=== PATIENT | male | born 1965 | race Caucasian/White ===

== ENCOUNTER 2018-04-30 06:38 | Day surgery (SDC) | payer OTHER, SELFPAY ==
[2018-04-23 12:50] VITALS: BMI 27.8
[2018-04-30] VITALS (8 sets, daily range): BP systolic 123–151; BP diastolic 82–103; PULSE 65–83; RESP 10–16; TEMP 35.9–36.2; O2SAT 93–97; BMI 27.3
[2018-04-30] MEDS: LACTATED RINGERS 1,000 ML 42 ML IV (07:38)
--- NOTE | 2018-04-30 07:44 | PM.PREOP ---
Pre-operative Note Interval Note Pre-op Check: History & Physical Reviewed by Physician
--- NOTE | 2018-04-30 07:45 | PM.OP.1 ---
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 After induction of general anesthesia the tourniquet was placed about the left ankle and foot was prepped and draped in the usual aseptic manner. The tourniquet was deflated and after check of anesthesia incision was made over the dorsal aspect of the 1st metatarsophalangeal joint. The incision was deepened through subcutaneous tissues being careful to identify and retract all vital neural and vascular structures. All bleeders were cauterized and ligated as necessary. Significant amount of degenerative changes with spurring was noted to the 1st metatarsophalangeal joint. There was at least 50% loss of the cartilage of the 1st metatarsal head and a little bit of loss to the base of the proximal phalanx. Spurring was reduced using a rongeur and saw and the dorsal lateral spur and dorsal medial eminence was also reduced. The area was smoothed with a manual rasp. A McGlamry scoop was used to reduce some plantar adhesions. The area was irrigated with copious amounts of normal sterile saline and put through range of motion there appeared to be a little bit more motion than prior to the surgery and was also more smooth. The tourniquet was deflated, prompt hyperemic response was seen to the foot. Deep closure was performed using 3 0 Vicryl subcutaneous with 4 O Vicryl, and skin with 3 0 nylon. He was placed in a sterile lightly compressive dressing consisting of Adaptic 4x4s conform Coban and Amando wrap stockinette and a postsurgical shoe. He was transferred to PACU vital signs stable. Pt. Postop monitoring the patient be discharged home on written and oral postop instructions including to keep the dressing dry and intact, avoiding significant ambulation to the foot, icing and elevating the foot when seated at home. DVT prevention techniques have been reviewed. His 1st postoperative visit will be a dressing change and likely closer to the 2nd to 3rd week we will be looking at suture removal. Complications: none Condition: stable Disposition: PACU Plan for aftercare: D/C to home when stable.
[2018-04-30] MEDS: CEFAZOLIN VIAL 2 GM in SODIUM CHLORIDE 0.9% 100 ML 200 ML IV (07:48)
[2018-04-30] MEDS: BUPIVACAINE 0.5% (PF) 30 ML VIAL 15 ML INJ (08:54)
[2018-04-30] MEDS: OXYCODONE/ACETAMINOPHEN 5/325 TABLET 1 TAB PO (09:34)
== END 2018-04-30 10:08 | disposition home or self-care (01) ==
PROVIDERS: Visit Provider Podiatrist
PROC: (CPT 28289; principal; 2018-04-30 07:45)
DX: M19.072 Primary osteoarthritis, left ankle and foot (principal); M12.9 Arthropathy, unspecified; M79.671 Pain in right foot; S90.121A Contusion of right lesser toe(s) without damage to nail, initial encounter; G47.33 Obstructive sleep apnea (adult) (pediatric)
CPT/HCPCS: 28289; J0690; J2405; J2704

== ENCOUNTER → 2023-09-28 15:05 | Outpatient (CLI) | payer OTHER, SELFPAY ==
[2023-09-28 15:52] LABS: Albumin 4.4 g/dL (3.5-5.0); Blood Urea Nitrogen 18 mg/dL (9-20); Calcium 9.5 mg/dL (8.4-10.2); Carbon Dioxide 26 mmol/L (22-32); Chloride 104 mmol/L (98-107); Estimated Glomerular Filt Rate > 60 mL/min (>60); Glucose 98 mg/dL (70-100); HEMOLYSIS < 15 (0-50); Phosphorous 4.5 mg/dL (2.5-4.5); Potassium 4.2 mmol/L (3.4-5.1); Sodium 139 mmol/L (137-145)
== END ==
PROVIDERS: Referring Provider Orthopaedic Surgery; Visit Provider Orthopaedic Surgery
DX: M25.531 Pain in right wrist (principal)
CPT/HCPCS: 36415; 80069

== ENCOUNTER → 2023-11-05 11:18 | Outpatient (CLI) | payer OTHER, SELFPAY ==
--- NOTE | 2023-11-05 | DI.MRI.S_ITS ---
PROCEDURE: MR WRIST RT W CON INDICATIONS: Other articular cartilage disorders, right wrist TECHNIQUE: After the administration of 3-4 mL of dilute intra-articular Gadolinium contrast into the radiocarpal compartment, coronal T1 spin echo with fat saturation and T2 fast spin echo with fat saturation, axial T1 spin echo and T2 fast spin echo with fat saturation, sagittal T1 spin echo with and without fat saturation through the wrist. COMPARISON: None. FINDINGS: Image quality: Excellent. Bones and cartilage: The carpal bones are normally aligned. No bone marrow contusions or fractures. No evidence for avascular necrosis. Mild wrist joint osteoarthritic changes are seen with joint space narrowing and subchondral sclerosis. Nonspecific intraosseous cystic changes are noted involving distal portion of hamate. No suspicious bony lesions. Carpal ligaments: The scapholunate and lunotriquetral ligaments appear intact, without gadolinium extravasation into the mid-carpal compartment. The radioscaphocapitate and radiolunotriquetral ligaments appear intact. The arcuate ligament and short radiolunate ligament also appear normal. The dorsal intercarpal and radiotriquetral ligaments appear intact. On sagittal images, the pisohamate ligament appears intact. Triangular fibrocartilage complex: There is signal abnormality and fraying of mid to lateral portion of triangular fibrocartilage near its radial insertion with gadolinium extravasation into the distal radioulnar joint. The adjacent meniscal homolog appears normal. The ulnar collateral ligament appears intact. The extensor carpi ulnaris tendon is thickened at the level of ulnar styloid. Tendons and soft tissues: The carpal tunnel structures appear normal, including the median nerve. The ulnar nerve appears normal within Guyon's canal. All six extensor tendon compartments demonstrate normal morphology, without pathologic tendon sheath fluid. No soft tissue ganglion cysts. IMPRESSION: 1. Mild right wrist joint osteoarthritis. No wrist fracture or dislocation. No evidence of avascular necrosis. Nonspecific intraosseous cyst formation in distal portion of hamate. 2. Scapholunate and lunotriquetral ligaments are intact. 3. Suggestion of full-thickness perforation involving central and lateral portion of triangular fibrocartilage with contrast extravasation into the distal radial ulnar joint space. 4. Tendinosis involving extensor carpi ulnaris tendon at the level of ulnar styloid. Rest of the wrist tendons are intact. Dictated by: Emmanuel Ingram M.D. on 11/05/2023 at 16:17 Approved by: Emmanuel Ingram M.D. on 11/05/2023 at 16:20
--- NOTE | 2023-11-05 | DI.RAD.S_ITS ---
PROCEDURE: FL WRIST INJECTION MR/CT RT INDICATIONS: Other articular cartilage disorders, right wrist COMPARISON: [facility], MR, MR WRIST RT W CON, 11/05/2023, 11:58. TECHNIQUE: After informed consent had been obtained, the wrist was examined fluoroscopically, and a site chosen for injection of the radiocarpal compartment from a dorsal approach. Skin was prepped and draped in a sterile fashion and 1% lidocaine infiltrated from the skin down to the articular surface. A hypodermic needle was then introduced into the articular space and a modest amount of contrast medium was instilled confirming intra-articular needle tip placement. This was followed by approximately 4 mL of a dilute gadolinium solution. Needle was removed and dressing was applied. The patient experienced no complications throughout the procedure and left the fluoroscopic suite in no apparent distress. FINDINGS: A single fluoroscopic spot image demonstrates intra-articular location to injected iodinated contrast. IMPRESSION: Successful fluoroscopic-guided administration of dilute Gadolinium solution for wrist MR arthrogram. Dictated by: Ubaldo Marin M.D. on 11/05/2023 at 14:15 Approved by: Ubaldo Marin M.D. on 11/05/2023 at 14:15
[2023-11-05] MEDS: LIDOCAINE 1% 20 ML INJ (12:39)
[2023-11-05] MEDS: SODIUM CHLORIDE 0.9 % 20 ML VIAL IV (12:40)
== END ==
PROVIDERS: Referring Provider Orthopaedic Surgery; Visit Provider Orthopaedic Surgery
DX: Z01.818 Encounter for other preprocedural examination (principal); M24.131 Other articular cartilage disorders, right wrist; M19.031 Primary osteoarthritis, right wrist
CPT/HCPCS: 20605; 73222; 77002; 93005; 93010

== ENCOUNTER → 2024-05-17 08:45 | Outpatient (CLI) | payer OTHER, SELFPAY ==
--- NOTE | 2024-05-17 08:46 | DI.CT.S_ITS ---
PROCEDURE: CT SINUS SCREEN WO CON INDICATIONS: CHRONIC PANSINUSITIS TECHNIQUE: Noncontrast 3.0 mm axial images acquired from the frontal sinuses to the mid-sella, with coronal and sagittal reformats. For radiation dose reduction, the following was used: automated exposure control, adjustment of mA and/or kV according to patient size. COMPARISON: None. FINDINGS: Image quality: Excellent. Maxillary Sinuses: The hypoplastic right maxillary sinus. The ostiomeatal units are nevertheless patent. No osseous remodeling. Ethmoid Air Cells: No bony remodeling or destruction. Sinuses are clear. Sphenoid Sinuses: Minimal mucosal thickening noted in the left sphenoid sinus. No remodeling Frontal Sinuses: No bony remodeling or destruction. Sinuses are clear. Both frontal recesses are patent Miscellaneous: Visualized intra-orbital contents are normal. No carrie bullosa or paradoxical turbinate curvature. No nasal septal deviation. IMPRESSION: Hypoplastic right maxillary sinus Mild sphenoid mucosal thickening Approved by: Arjun Trejo M.D. on 05/17/2024 at 17:55
== END ==
LOC: CT 08:46
PROVIDERS: Referring Provider Otolaryngology; Visit Provider Otolaryngology
DX: J32.4 Chronic pansinusitis (principal); J34.89 Other specified disorders of nose and nasal sinuses; J34.2 Deviated nasal septum; R51.9 Headache, unspecified
CPT/HCPCS: 70486